=== PATIENT | male | born 2000 | race African-American/Black ===

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

== ENCOUNTER 2021-06-06 11:33 | Emergency (ER) | payer OTHER ==
[2021-06-06 11:43] VITALS: BP 135/80
[2021-06-06 12:02] LABS: RAPID STREP SCREEN Negative (Negative)
--- NOTE | 2021-06-06 12:22 | ED Physician Documentation ---
History of Present Illness - Stated complaint Stated Complaint: HEADACHE, SORE THROAT - Chief complaint Chief Complaint: General - History obtained from History obtained from: Patient - Additonal information Additional information: 20-year-old with history of seizure disorder presents with 3 days of what sounds like a viral illness marked by scratchy throat, runny nose, dry cough. Temps in the high 90s. No actual fevers. Mother and sister recently tested positive for the flu. Not sure which type. Review of Systems Constitutional: reports: Chills, Myalgias, Fatigue Nose: reports: Rhinorrhea / runny nose Throat: reports: Sore throat Respiratory: reports: Cough. denies: Dyspnea PD PAST MEDICAL HISTORY - Past Medical History Cardiovascular: None Respiratory: None Neuro: Seizure disorder Endocrine/Autoimmune: None - Past Surgical History Past Surgical History: No - Present Medications Home Medications: Ambulatory Orders Medication Instructions Recorded Confirmed Penicillin V Potassium 500 mg PO Q6HR #40 tab 04/06/20 Zonisamide [Zonegran] 100 mg PO DAILY 04/06/20 04/06/20 oxyCODONE/ACET 5/325 [Percocet 5 1 each PO Q4-6H 04/06/20 04/06/20 mg/325 mg] - Allergies Allergies/Adverse Reactions: Allergies Allergy/AdvReac Type Severity Reaction Status Date / Time No Known Drug Allergies Allergy Verified 06/06/21 11:38 - Social History Does the pt smoke?: No Smoking Status: Never smoker Does the pt drink ETOH?: No Does the pt have substance abuse?: No - Immunizations Immunizations are current?: Yes - POLST Patient has POLST: No PD ED PE NORMAL - Vitals Vital signs reviewed: Yes - General General: Alert and oriented X 3, No acute distress - HEENT HEENT: Pharynx benign - Cardiac Cardiac: RRR, No murmur - Respiratory Respiratory: No respiratory distress, Clear bilaterally - Abdomen Abdomen: Non tender - Derm Derm: No rash - Neuro Neuro: Alert and oriented X 3, Normal speech Results - Vitals Vitals: Vital Signs - 24 hr 06/06/21 11:36 Temperature 37.3 C Heart Rate 97 Respiratory 14 Rate Blood Pressure 135/80 H O2 Saturation 98 Oxygen O2 Source Room air - Labs Labs: Laboratory Tests 06/06/21 06/06/21 11:42 11:42 Nasal Adenovirus (PCR) NOT DETECTED Nasal B. parapertussis DNA (PCR) NOT DETECTED Nasal Coronavir 229E PCR NOT DETECTED Nasal Coronavir HKU1 PCR NOT DETECTED Nasal Coronavir NL63 PCR NOT DETECTED Nasal Coronavir OC43 PCR NOT DETECTED Nasal Enterovir/Rhinovir PCR NOT DETECTED Nasal Influenza A H3 PCR DETECTED A Nasal Influenza B PCR NOT DETECTED Nasal Parainfluen 1 PCR NOT DETECTED Nasal Parainfluen 2 PCR NOT DETECTED Nasal Parainfluen 3 PCR NOT DETECTED Nasal Parainfluen 4 PCR NOT DETECTED Nasal RSV (PCR) NOT DETECTED Nasal B.pertussis DNA PCR NOT DETECTED Nasal C.pneumoniae (PCR) NOT DETECTED [place] Human Metapneumo PCR NOT DETECTED Nasal M.pneumoniae (PCR) NOT DETECTED Nasal SARS-CoV-2 (PCR) NOT DETECTED Group A Strep Rapid Negative PD MEDICAL DECISION MAKING - ED course ED course: 20-year-old presents with influenza A after an exposure to same. Given young age and lack of significant comorbidities other than seizure disorder I do not think the benefit of Tamiflu outweighs the risks. Departure - Departure Disposition: 01 Home, Self Care Clinical Impression: Influenza A Condition: Good Record reviewed to determine appropriate education?: Yes Instructions: ED Flu Comments: Tylenol and/or ibuprofen as needed for the aches and pains. Drink plenty of fluids. Return as needed for new or worsening symptoms. Forms: Activity restrictions Discharge Date/Time: 06/06/21 12:48
[2021-06-06 12:40] LABS: B. PARAPERTUSSIS- RESP PCR PAN NOT DETECTED; B. PERTUSSIS- RESP PCR PANEL NOT DETECTED; C. PNEUMONIAE- RESP PCR PANEL NOT DETECTED; CORONAVIRUS 229E-RESP PCR NOT DETECTED; CORONAVIRUS HKU1-RESP PCR NOT DETECTED; CORONAVIRUS NL63-RESP PCR NOT DETECTED; CORONAVIRUS OC43-RESP PCR NOT DETECTED; HUMAN METAPNEUMOVIRUS NOT DETECTED; INFLUENZA A H3- RESP PCR PANEL DETECTED; INFLUENZA B - RESP PCR PANEL NOT DETECTED; M. PNEUMONIAE- RESP PCR PANEL NOT DETECTED; PARAINFLUENZA VIRUS 1 NOT DETECTED; PARAINFLUENZA VIRUS 2 NOT DETECTED; PARAINFLUENZA VIRUS 3 NOT DETECTED; PARAINFLUENZA VIRUS 4 NOT DETECTED; RHINOVIRUS/ENTEROVIRUS NOT DETECTED; RSV- RESP PCR PANEL NOT DETECTED; SARS-CoV-2 -RESP PCR PANEL NOT DETECTED
== END 2021-06-06 12:48 | disposition home or self-care (01) ==
LOC: ED 11:33
DX: J34.89 Other specified disorders of nose and nasal sinuses (principal); J10.1 Influenza due to other identified influenza virus with other respiratory manifestations; R05.9 Cough, unspecified
CPT/HCPCS: 87070; 87430; 87633; 99282; 99283

== ENCOUNTER 2021-07-23 03:24 | Emergency (ER) | payer OTHER ==
[2021-07-23 03:38] VITALS: BP 129/50
[2021-07-23] MEDS ORDERED: AMOX/CLAV 875 MG/125 MG TABLET PO STA (04:06)
--- NOTE | 2021-07-23 04:08 | ED Physician Documentation ---
PD HPI URI - Stated complaint Stated Complaint: COUGH/SORE THROAT/CHEST PAIN - Chief complaint Chief Complaint: Resp - History obtained from History obtained from: Patient - History of Present Illness Timing - onset: How many days ago (4) Timing duration: Days (4) Timing details: Gradual onset, Still present Associated symptoms: Nasal congestion, Rhinorrhea, Dry cough Improves by: Rest, Medication Similar symptoms before: Diagnosis (URI) Recently seen: Not recently seen - Additional information Additional information: 20-year-old male with a known seizure disorder had a upper respiratory infection about 2-1/2 weeks ago he had improvement after 10 days and then about 4 days later he developed symptoms again with a cough and congestion he has not symptoms for about 4 days and he is wondering if he has the flu. He does state that he gets up in the morning and coughs a fair amount. He denies ear pain or muffled hearing. Review of Systems Constitutional: denies: Fever, Chills, Myalgias Eyes: denies: Decreased vision Ears: denies: Ear pain Nose: reports: Congestion. denies: Rhinorrhea / runny nose Throat: reports: Sore throat Cardiac: denies: Chest pain / pressure, Palpitations Respiratory: reports: Cough. denies: Dyspnea GI: denies: Nausea, Vomiting, Diarrhea : denies: Dysuria, Frequency Skin: denies: Rash PD PAST MEDICAL HISTORY - Past Medical History Past Medical History: Yes Cardiovascular: None Respiratory: None Neuro: Seizure disorder Endocrine/Autoimmune: None GI: None : None HEENT: None Psych: None Musculoskeletal: None Derm: None - Past Surgical History Past Surgical History: No - Present Medications Home Medications: Ambulatory Orders Medication Instructions Recorded Confirmed Penicillin V Potassium 500 mg PO Q6HR #40 tab 04/06/20 Zonisamide [Zonegran] 100 mg PO DAILY 04/06/20 04/06/20 oxyCODONE/ACET 5/325 [Percocet 5 1 each PO Q4-6H 04/06/20 04/06/20 mg/325 mg] Amox/Clav 875/125 [Augmentin] 1 each PO Q12H #20 tablet 07/23/21 - Allergies Allergies/Adverse Reactions: Allergies Allergy/AdvReac Type Severity Reaction Status Date / Time No Known Drug Allergies Allergy Verified 07/23/21 03:37 - Social History Does the pt smoke?: No Smoking Status: Never smoker Does the pt drink ETOH?: No Does the pt have substance abuse?: No - Immunizations Immunizations are current?: Yes - POLST Patient has POLST: No PD ED PE NORMAL - Vitals Vital signs reviewed: Yes (normal ) - General General: Alert and oriented X 3, No acute distress, Well developed/nourished - HEENT HEENT: Atraumatic, PERRL, EOMI, Other (Cerumen is removed from the right ear canal to reveal a normal-appearing TM on the right side. The left TM is erythematous with distortion of landmarks. 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 He has had a bimodal illness likely a viral illness followed by this bacterial complication. We did discuss testing with a bio fire the patient declines.He is treated here in the emergency department with Augmentin. Departure - Departure Disposition: 01 Home, Self Care Clinical Impression: Otitis media Qualifiers: Otitis media type: suppurative Chronicity: acute Laterality: left Recurrence: recurrent Spontaneous tympanic membrane rupture: without spontaneous rupture Qualified Code(s): H66.005 - Acute suppurative otitis media without spontaneous rupture of ear drum, recurrent, left ear Condition: Stable Instructions: ED Otitis Media Acute Adult Follow-Up: [facility] [Provider Group] Prescriptions: Amox/Clav 875/125 [Augmentin] 1 each PO Q12H #20 tablet Comments: Brant today looks like you have a middle ear infection on the left side that is likely a complication of the recent viral illness you have had. I have E scribed the antibiotic Augmentin to [facility] in [place]. Forms: Activity restrictions
== END 2021-07-23 04:24 | disposition home or self-care (01) ==
LOC: ED 03:24
DX: H66.005 Acute suppurative otitis media without spontaneous rupture of ear drum, recurrent, left ear (principal)
CPT/HCPCS: 99282; 99283; A9270

== ENCOUNTER 2022-05-03 10:01 | Emergency (ER) | payer OTHER ==
[2022-05-03 10:11] VITALS: BP 143/70
--- NOTE | 2022-05-03 10:49 | ED Physician Documentation ---
PD HPI HEENT - Stated complaint Stated Complaint: R EAR PX/LOSS OF HEARING - Chief complaint Chief Complaint: Heent - History obtained from History obtained from: Patient - Additional information Additional information: The patient comes to the emergency department chief complaint of right ear pain that has been present today. He denies any other symptoms whatsoever. No recent allergies or upper respiratory symptoms. No fevers or chills. No vertigo. No trauma. No drainage. No recent swimming, flying, or diving. He states he is mainly concerned because he has a history of seizures and the last time he had a seizure, he was told that it may have been triggered by an ear infection that he had. He has not taken anything for the pain at this time. PD PAST MEDICAL HISTORY - Past Medical History Cardiovascular: None Respiratory: None Neuro: Seizure disorder Endocrine/Autoimmune: None GI: None : None HEENT: None Psych: None Musculoskeletal: None Derm: None - Past Surgical History Past Surgical History: No - Present Medications Home Medications: Ambulatory Orders Medication Instructions Recorded Confirmed Zonisamide [Zonegran] 100 mg PO DAILY 04/06/20 05/03/22 - Allergies Allergies/Adverse Reactions: Allergies Allergy/AdvReac Type Severity Reaction Status Date / Time No Known Drug Allergies Allergy Verified 05/03/22 10:11 - Social History Does the pt smoke?: No Smoking Status: Never smoker Does the pt drink ETOH?: No Does the pt have substance abuse?: No - Immunizations Immunizations are current?: Yes - POLST Patient has POLST: No PD ED PE NORMAL - Vitals Vital signs reviewed: Yes - General General: Alert and oriented X 3, No acute distress, Well developed/nourished - HEENT HEENT: Atraumatic, PERRL, EOMI, Ears normal (Mild amount of cerumen in the right ear canal but there is a clear view of the tympanic membrane, which appears normal), Moist mucous membranes - Neck Neck: Supple, no meningeal sign - Respiratory Respiratory: No respiratory distress - Derm Derm: Warm and dry - Extremities Extremities: No deformity - Neuro Neuro: Alert and oriented X 3 - Psych Psych: Normal mood, Normal affect Results - Vitals Vitals: Vital Signs - 24 hr 05/03/22 10:09 Temperature 36.3 C L Heart Rate 70 Respiratory 16 Rate Blood Pressure 143/70 H O2 Saturation 99 Oxygen O2 Source Room air PD Medical Decision Making - ED course Complexity details: considered differential, d/w patient ED course: I discussed with the patient that his ear exam is normal today. I am not exactly sure why he has pain, but I anticipate this will pass on its own. I do not find any indication for antibiotics at this time. We have discussed home management of the symptoms and the usual indications for follow-up or return. Departure - Departure Disposition: Home, Self Care Clinical Impression: Acute ear pain Qualifiers: Laterality: right Qualified Code(s): H92.01 - Otalgia, right ear Condition: Stable Instructions: ED Otitis Media Serous Adult Comments: Your ear exam today is actually completely normal. Is not exactly clear why your ear is hurting but most likely, you either have some pressure behind your eardrum or perhaps a little inflammation that has caused your nerves to send pain signals to your brain. There is no indication for antibiotics at this time, as your ear does not appear infected at all. Please follow-up with your primary doctor if you begin to notice worsening pain or fevers.
== END 2022-05-03 11:06 | disposition home or self-care (01) ==
LOC: ED 10:01
DX: H92.01 Otalgia, right ear (principal); G40.909 Epilepsy, unspecified, not intractable, without status epilepticus
CPT/HCPCS: 99281; 99283